=== PATIENT | female | born 1955 | race Caucasian/White ===

== ENCOUNTER → 2016-05-04 | Outpatient (CLI) | payer BC, OTHER ==
[~2016-05-04] MED LIST: CALC600T9 PO; ESCI1TAB10 PO; ESCI1TAB9 PO; LOSA50TA6 PO; MULTTAB58 PO; SIMV10TA2 PO; SULI200T PO; ZOLP10TA PO
== END | disposition home or self-care (01) ==
LOC: C.PAPS 12:02
PROVIDERS: ATTEND Obstetrics & Gynecology
DX: Z01.419 Encounter for gynecological examination (general) (routine) without abnormal findings (principal)

== ENCOUNTER → 2016-11-09 | Outpatient (CLI) | payer OTHER ==
[2016-11-09 10:06] LABS: MEAN CELL VOLUME 92.7 fL (80-100); MEAN CORPUSCULAR HEMOGLOBIN 29.8 pg (25-34); MEAN CORPUSCULAR HGB CONC 32.1 g/dl (32-36); MEAN PLATELET VOLUME 11.2 fL (7.4-10.4); PLATELET COUNT 275 K/uL (130-400); RED BLOOD COUNT 4.53 M/uL (4.2-5.4); WHITE BLOOD COUNT 4.17 K/uL (4.8-10.8)
[2016-11-09 10:35] LABS: ALT/SGPT 66 U/L (12-78); AST/SGOT 44 U/L (15-37); BLOOD UREA NITROGEN 13 mg/dl (7-18); BUN/CREATININE RATIO 16.4 (10-20); CALCIUM 9.7 mg/dl (8.5-10.1); CARBON DIOXIDE 31 mmol/L (21-32); CHLORIDE 109 mmol/L (98-107); CREATININE 0.81 mg/dl (0.60-1.20); GLUCOSE 87 mg/dl (70-99); POTASSIUM 4.4 mmol/L (3.5-5.1); SODIUM 144 mmol/L (136-145)
[2016-11-09 10:41] LABS: ALB/GLOB RATIO 1.3 (0.9-2); ALKALINE PHOSPHATASE 171 U/L (45-117); CHOLESTEROL 235 mg/dl (0-200); CHOLESTEROL/HDL RATIO 3.5; HDL CHOLESTEROL 67 mg/dl; LDL CHOLESTEROL CALCULATED 155 mg/dl; TRIGLYCERIDES 67 mg/dl (0-150); VERY LOW DENSITY LIPOPROT CALC 13 mg/dl
[2016-11-09 10:44] LABS: FERRITIN 190.1 ng/ml (8.0-388.0)
[2016-11-09 10:48] LABS: BASO % 0.2 %; BASO ABS # 0.01 K/uL (0-0.2); COMPLETE YES; EOS % 1.2 %; LYMPH % 50.4 %; MONO % 7.4 %; NEUT % 40.8 %
== END | disposition home or self-care (01) ==
LOC: C.LAB1850 09:01
PROVIDERS: ATTEND Family Medicine
DX: E78.5 Hyperlipidemia, unspecified (principal); K76.0 Fatty (change of) liver, not elsewhere classified; K91.2 Postsurgical malabsorption, not elsewhere classified; Z90.3 Acquired absence of stomach [part of]

== ENCOUNTER → 2017-01-18 | Outpatient (CLI) | payer OTHER ==
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
== END | disposition home or self-care (01) ==
LOC: C.CTS 10:56
PROVIDERS: ATTEND Nurse Practitioner Family
DX: R51 Headache (principal)

== ENCOUNTER → 2017-04-20 | Outpatient (CLI) | payer OTHER ==
--- NOTE | 2017-04-21 14:56 | MAMMOGRAPHY REPORT ---
BILATERAL DIGITAL SCREENING MAMMOGRAM TOMOSYNTHESIS WITH CAD: 04/20/2017 CLINICAL HISTORY: Routine screening. Patient has no complaints. TECHNIQUE: Bilateral breast tomosynthesis in addition to standard 2D mammography was performed. Curre nt study was also evaluated with a Computer Aided Detection (CAD) system. COMPARISON: Comparison is made to exams dated: 04/17/2016 mammogram, 04/15/2015 mammogram, 4 mammogram, 03/07/2013 mammogram, 03/03/2012 mammogram, and 02/13/2011 mammogram - [facility]. BREAST COMPOSITION: The tissue of both breasts is heterogeneously dense, which may obscure small mas ses. FINDINGS: There is interval decrease in the subcutaneous and intraparenchymal fat of the breasts as well as decreased size of the breasts comparing to the 2015, 201401/06/2014 mammograms, likely secon kvng to recent weight loss. There are possible new grouped amorphous microcalcifications in the 12:0 0 middle to posterior left breast for which additional spot magnification views are recommended. There is a stable benign coarse calcification in the lower inner quadrant of the right breast. No oth er suspicious mass, architectural distortion or cluster of microcalcifications is seen. IMPRESSION: ACR BI-RADS CATEGORY 0: INCOMPLETE EVALUATION: NEED ADDITIONAL IMAGING EVALUATION The possible new grouped amorphous microcalcifications in the 12:00 left breast need additional evalu ation. The patient will be called to schedule an appointment. Approximately 10% of breast cancers are not detected with mammography. A negative mammographic report should not delay biopsy if a clinically suggestive mass is present. Loraine Santiago M.D. ay/:04/20/2017 14:37:02 Rod Finisher: Nellie DORADO(Sadia)(Susi), [facility] letter sent: Addl Imaging 0 BI-RADS Code: ACR BI-RADS Category 0: Incomplete Evaluation: Need Additional Imaging Evaluation
== END | disposition home or self-care (01) ==
LOC: C.MAMM 08:48
PROVIDERS: ATTEND Family Medicine
DX: Z12.31 Encounter for screening mammogram for malignant neoplasm of breast (principal); R92.8 Other abnormal and inconclusive findings on diagnostic imaging of breast

== ENCOUNTER → 2017-04-26 | Outpatient (CLI) | payer OTHER ==
--- NOTE | 2017-04-26 15:10 | MAMMOGRAPHY REPORT ---
UNILATERAL LEFT DIGITAL DIAGNOSTIC MAMMOGRAM: 04/26/2017 CLINICAL HISTORY: 61-year-old woman called back from screening mammography for left breast microcalci fications. TECHNIQUE: Spot magnification left CC and ML views were obtained. COMPARISON: Comparison is made to exams dated: 04/20/2017 mammogram, 04/17/2016 mammogram, 04/15/2015 mammogram, 04/13/2014 mammogram, 03/07/2013 mammogram, and 03/03/2012 mammogram - [facility]. BREAST COMPOSITION: There are scattered areas of fibroglandular density in the left breast. FINDINGS: There are segmental amorphous microcalcifications in the 12:00 middle one third of the lef t breast, measuring approximately 2.5 x 4.5 x 4.0 cm. These were not definitely identified on prior mammograms and are therefore indeterminate. Definitive characterization with a stereotactic guided b iopsy is recommended. IMPRESSION: ACR BI-RADS CATEGORY 4: SUSPICIOUS New segmental amorphous microcalcifications in the 12:00 left breast are indeterminate and a left lavelle ast stereotactic guided biopsy is recommended. Would target the most concentrated area of calcificat ions denoted by an annotation #2 in the CC projection. These results and recommendations were discussed with the patient at the time of the exam. She tenta tively scheduled the biopsy prior to leaving our department. Approximately 10% of breast cancers are not detected with mammography. A negative mammographic report should not delay biopsy if a clinically suggestive mass is present. Loraine Santiago M.D. ay/:04/26/2017 14:08:51 [employer] Representatives: Nellie Pedroza, [facility] letter sent: Abnormal 4/5 BI-RADS Code: ACR BI-RADS Category 4: Suspicious
== END | disposition home or self-care (01) ==
LOC: C.MAMM 13:33
PROVIDERS: ATTEND Family Medicine
DX: R92.0 Mammographic microcalcification found on diagnostic imaging of breast (principal)

== ENCOUNTER → 2017-04-28 | Outpatient (CLI) | payer OTHER ==
--- NOTE | 2017-04-28 15:10 | Discharge Instructions ---
Discharge Instructions Procedure Procedure Date: Apr 28, 2017. Reason for visit: Left Calcifications. Discharge Discharge Date: Apr 28, 2017. Discharge Diagnosis: status post breast biopsy Instructions Activity Recommendations: Additional Limitations (see below) Return to School/Work: no limitations Recommended Home Diet: No Limitations Provider Instructions: ACTIVITY RECOMMENDATIONS: * No lifting, pushing, pulling or exercising the affected side for three days. RETURN TO SCHOOL/WORK: * You may return to work/school after the procedure, but do not perform any strenuous activities for 24 to 48 hours. MEDICATIONS: * Tylenol (two 325 mg) every four to six hours if needed for mild pain (if not allergic to Tylenol). DIET: * Resume previous diet. SPECIAL CARE INSTRUCTIONS: * Keep biopsy site dry for 24 hours. May shower after 24 hours, but do not soak (bathe) incision. * May remove Tegaderm (plastic patch) tomorrow AFTER showering. * Leave the steri-strips on for one week. Allow the steri-strips to fall off by themselves. If not off after one week, you may remove them. You may place a Bandaid crosswise over the strips, if desired. * Apply ice 10 minutes on and 10 minutes off as needed. * Wear a bra at bedtime to sleep more comfortably for 2-3 days. * Your referring physician should have the results after approximately 5 to 7 business days. * Call for unusual bleeding, fever, drainage, etc or if you have any questions call during normal business hours or after hours call Dr Rios, [phone]. FOLLOW UP VISIT: Follow-up with Referring Physician as scheduled. Allergies Coded Allergies: No Known Allergies (Unverified , 04/18/14) Abigail Witt Recommendations: Call your doctor if: * Temperature above 101 degrees * Pain not relieved by pain medicine ordered * There is increased drainage or redness from any incision * You have any unanswered questions or concerns. Your Doctors Instructions noted above were prepared by provider Susanna Rios. Patient Signature Section: Patient Instructions Signature Page Magdalena Rossi Patient (or Guardian) Signature/Date: I have read and understand the instructions given to me by my caregivers. Caregiver/RN/Doctor Signature/Date: The above-named patient and/or guardian has received patient instructions on this date. + Original Patient Signature Page (only) stays with chart. Please make copy for patient.
--- NOTE | 2017-04-29 14:38 | MAMMOGRAPHY REPORT ---
UNILATERAL LEFT DIGITAL DIAGNOSTIC MAMMOGRAM: 04/28/2017 CLINICAL HISTORY: Status post left breast stereotactic biopsy. TECHNIQUE: Postprocedural left CC and ML views were obtained. COMPARISON: Comparison is made to exams dated: 04/26/2017 mammogram, 04/20/2017 mammogram, 04/17/2016 ma mmogram, 04/15/2015 mammogram, 04/13/2014 mammogram, and 03/07/2013 mammogram - [facility]. BREAST COMPOSITION: There are scattered areas of fibroglandular density in the left breast. FINDINGS: A new biopsy marker clip is seen at the site of the biopsied calcifications in the left boyer perior breast at approximately 11 to 12:00. No significant postbiopsy hematoma is seen. IMPRESSION: POST PROCEDURE IMAGING FOR MARKER PLACEMENT New biopsy marker clip status post left breast stereotactic biopsy. Pathology results are pending. Approximately 10% of breast cancers are not detected with mammography. A negative mammographic report should not delay biopsy if a clinically suggestive mass is present. Susanna Rios M.D. ah/:04/28/2017 15:29:44 Horser Up: Nellie DORADO(R)(M), [facility] BI-RADS Code: Post Procedure Imaging For Marker Placement
--- NOTE | 2017-04-30 09:00 | MAMMOGRAPHY REPORT ---
STEREOTACTIC GUIDED BIOPSY LEFT BREAST: 04/28/2017 CLINICAL HISTORY: Indeterminate calcifications in the left 12:00 breast. PATIENT CONSENT: The procedure, risks, benefits, and alternatives of stereotactic biopsy with clip pl acement were discussed with the patient, and verbal and written consent was obtained. A timeout was performed immediately prior to the procedure. PROCEDURE DESCRIPTION: With stereotactic guidance, aseptic technique, and lidocaine as a local anesth etic (1% lidocaine to anesthetize the skin and 1% lidocaine with epinephrine to anesthetize the deepe r tissues), the faint calcifications of concern in the left 12:00 breast were sampled multiple times with a 9-gauge petite vacuum-assisted biopsy needle ([employer]). The path of approach was cranioca udal. The specimen radiograph demonstrates probable faint calcifications to be present in the sample s. A metallic marker clip was placed at the biopsy site. This was confirmed on postprocedure mammog celina. Direct pressure was applied at the biopsy site and hemostasis was readily achieved. The patie nt tolerated the procedure without complication. She was given wound care instructions. COMPARISON: Comparison is made to exams dated: 04/26/2017 mammogram, 04/20/2017 mammogram, 04/17/2016 ma mmogram, 04/15/2015 mammogram, 04/13/2014 mammogram, and 03/07/2013 mammogram - [facility]. IMPRESSION: STEREOTACTIC GUIDED BIOPSY Stereotactic biopsy of indeterminate calcifications in the left 12:00 breast, with clip placement. P robable faint calcifications are seen within the samples on the specimen radiograph. The patient josé miguel l receive pathology results from her referring provider. Pending benign pathology results, recommend follow-up mammograms of the left breast in 6 months. Susanna Rios M.D. ah/:04/28/2017 15:12:06 Instrumentation And Controls Designer: Nellie DORADO(Sadia)(M), [facility]
== END | disposition home or self-care (01) ==
LOC: C.MAMM 14:11
PROVIDERS: ATTEND Family Medicine
DX: R92.0 Mammographic microcalcification found on diagnostic imaging of breast (principal)

== ENCOUNTER → 2017-05-07 | Outpatient (CLI) | payer OTHER | END | disposition home or self-care (01) | LOC: C.PAPS 16:06 | PROVIDERS: ATTEND Obstetrics & Gynecology | DX: Z12.4 Encounter for screening for malignant neoplasm of cervix (principal); Z78.0 Asymptomatic menopausal state ==